=== PATIENT | female | born 1950 | race Caucasian/White ===

== ENCOUNTER → 2018-09-19 | Outpatient (CLI) | payer MEDICARE ==
--- NOTE | 2018-09-19 15:19 | Diagnostic Imaging Report ---
Abdomen, 2 views. History: Hyperparathyroidism. Findings: Large amount of fecal material is present throughout the colon. There are multiple clips in the abdomen and pelvis. The intestinal gas pattern is nonobstructive. There no masses. No definite calcified renal or ureteral stones. Degenerative changes and scoliosis of the spine. IMPRESSION: Large amount of fecal material throughout the colon. No definite calcified renal or ureteral stones. Signed by: Dr. Jr Morgan DO on 09/19/2018 3:16 PM
--- NOTE | 2018-09-19 20:07 | Diagnostic Imaging Report ---
Parathyroid Scan with SPECT Reason for exam: Hyperparathyroidism Radiopharmaceutical: Tc-99m sestamibi 27.5 mCi After intravenous administration of the radiopharmaceutical, immediate and 2-hour planar images of the neck and upper chest were obtained. Tomographic images of the neck and upper chest were obtained following the initial planar images. On the initial planar images, a very subtle focus of increased tracer is seen in the mid aspect of the right thyroid lobe. On the tomographic images, this uptake of tracer is localized to within the mid right thyroid lobe. On the delayed planar images, the thyroid washes out adequately and this focus persists. An additional persistent very small focus appears immediately inferior to the right thyroid lobe. This very small focus is seen on the tomographic images inferior to the right thyroid lobe. No other focal abnormalities are identified. Impression: Two enlarged hypermetabolic parathyroid gland are suspected in the mid aspect of the right thyroid lobe and inferior to the right thyroid lobe. Thyroid adenomata can have the same appearance but can be identified on radioiodine thyroid scan. Parathyroid adenoma are not iodine-avid and wouldn't appear on radioiodine thyroid scan. Signed by: Dr. Angelica Ivey M.D. on 09/19/2018 8:03 PM
== END ==
LOC: NM 09:51
PROVIDERS: ATTEND Urology
DX: E21.3 Hyperparathyroidism, unspecified (principal); N39.0 Urinary tract infection, site not specified
CPT/HCPCS: 74018; 78071; A9500